=== PATIENT | male | born 1995 | race Caucasian/White ===

== ENCOUNTER 2023-11-13 16:10 | Day surgery (SDC) | payer BC, SELFPAY ==
[2023-11-13] VITALS (20 sets, daily range): BP systolic 115–151; BP diastolic 60–92; PULSE 65–112; RESP 12–18; TEMP 36.6–37.2; O2SAT 95–99; BMI 23.7
[2023-11-13 17:11] LABS: Lactate* 1.6 mmol/L (0.5-1.9)
--- NOTE | 2023-11-13 17:12 | ED_ITS ---
HPI - General Adult General Date Seen: 11/13/23 Chief complaint: Abdominal Pain Stated complaint: Ref by UC for poss appy imaging Time Seen by Provider: 11/13/23 17:12 History of Present Illness HPI narrative: This is a generally healthy 27-year-old male referred to the ER today from the Urgent Care for evaluation of right lower quadrant abdominal pain associated with elevated white blood cell count. He has had abdominal pain that began yesterday evening around 10:00 p.m.. No clear trigger. No new diet or new foods. He has been nauseous and vomiting and has had 3 episodes of emesis today. Poor appetite. Bowel movements normal. Urination normal. Was noted to have a low-grade fever at urgent care. In urgent care he had a workup that showed a WBC of 17.9. Hemoglobin 16, platelet count 222 Point of care sodium 138, potassium 3.4, chloride 101, bicarb 25, BUN 11, creatinine 0.9, ionized calcium 1.18, glucose 110. He was referred here to the ER for CT scan and concern for appendicitis. Related Data Home Medications Medication Instructions Recorded Confirmed valacyclovir 500 mg tablet 500 mg PO QDAY 11/13/23 11/13/23 Allergies Allergy/AdvReac Type Severity Reaction Status Date / Time No Known Drug Allergies Allergy Verified 11/13/23 18:08 [facility] Social History Smoking Status: Never smoker How often do you have a drink containing alcohol: 2-3 times a week AUDIT-C Alcohol total score: 3 Non-prescribed substance use: denies use service: No Exam Narrative: Exam Narrative: Constitutional: Appears well-developed and well-nourished. Alert. Conversant. Politely declines pain meds for now. Not too much pain as long as he holds still. Non toxic. HENT: Head: Atraumatic. Nose: Nose normal. Mouth/Throat: Oral mucosa is clear and moist. no trismus. Pharynx normal. Tonsils symmetric. No tonsillar enlargement, erythema, or exudate. Eyes: Conjunctivae normal. EOM normal. Pupils equal, round, and reactive to light. No scleral icterus. Neck: Normal range of motion. Neck supple. No tracheal deviation present. Cardiovascular: Normal rate, regular rhythm. No gallop. No friction rub. No murmur heard. Symmetric radial artery pulses Pulmonary/Chest: Effort normal. No stridor. No respiratory distress. No wheezes. No rales. No rhonchi . No tenderness. Abdominal: Soft. Bowel sounds normal. No distension. No mass. Right lower quadrant tenderness. Positive rebound. Some guarding, but not a rigid abdomen. Musculoskeletal: RUE: Normal range of motion. No tenderness. No deformity LUE: Normal range of motion. No tenderness. No deformity RLE: Normal range of motion. No edema. No tenderness. No deformity LLE: Normal range of motion. No edema. No tenderness. No deformity Neurological: Alert and oriented to person, place, and time. Normal strength. CN II-VII intact. No sensory deficit. GCS eye subscore is 4. GCS verbal subscore is 5. GCS motor subscore is 6. Normal coordination Skin: Skin is warm and dry. No rash noted. No pallor. Normal capillary refill. Psychiatric: Normal mood. Normal affect. Const: Vital Signs, click to edit/add: Vital Signs - 24 hr 11/13/23 16:22 11/13/23 19:02 11/13/23 19:03 Temperature 98.4 F Pulse Rate [Pulse Oximeter] 92 Respiratory Rate 16 Blood Pressure [Le ft Upper Arm] 135/89 Pulse Oximetry 97 99 99 Oxygen Delivery Me thod Room Air 11/13/23 19:22 11/13/23 19:24 Temperature 98.9 F Pulse Rate [Pulse Oximeter] 112 H Respiratory Rate 18 Blood Pressure [Le ft Upper Arm] 139/92 H Pulse Oximetry 98 98 Oxygen Delivery Me thod Room Air Course Vital Signs Vital signs: Initial Vital Signs Temperature 98.4 F 11/13/23 16:22 Temperature Source Temporal Artery Scan 11/13/23 16:22 Pulse Rate 92 11/13/23 16:22 Pulse Rhythm Regular 11/13/23 16:22 Pulse Strength 3+ Normal 11/13/23 16:22 Respiratory Rate 16 11/13/23 16:22 Blood Pressure 135/89 11/13/23 16:22 Blood Pressure Mean 104 11/13/23 16:22 Blood Pressure Position Sitting 11/13/23 16:22 Pulse Oximetry 97 11/13/23 16:22 Oxygen Delivery Method Room Air 11/13/23 16:22 Vital Signs Temperature 98.4 F 11/13/23 16:22 Pulse Rate 92 11/13/23 16:22 Respiratory Rate 16 11/13/23 16:22 Blood Pressure 135/89 11/13/23 16:22 Pulse Oximetry 97 11/13/23 16:22 Oxygen Delivery Method Room Air 11/13/23 16:22 Temperature 98.9 F 11/13/23 19:24 Pulse Rate 112 H 11/13/23 19:24 Respiratory Rate 18 11/13/23 19:24 Blood Pressure 139/92 H 11/13/23 19:24 Pulse Oximetry 98 11/13/23 19:24 Oxygen Delivery Method Room Air 11/13/23 19:24 Medications Administered Medications: Discontinued Medications Generic Name Dose Route Start Last Admin Trade Name Freq PRN Reason Stop Dose Admin Sodium Chloride 1,000 mls @ 1,000 mls/hr 11/13/23 17:15 11/13/23 19:16 0.9 % Sodium Chloride 1000 Ml IV 11/13/23 18:14 Infused .Q1H [facility] Infusion Medical Decision Making MDM Narrative Medical decision making narrative: The patient presented with right lower quadrant abdominal pain and the Workup, including CT scan, confirms appendicitis. There is no evidence of rupture or abscess at this time. Pain has been controlled with interventions in the Emergency Department. Parenteral antibiotics have been ordered in the Emergency Department. 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 They want us to hold on antibiotics until patient gets to the OR. Discussed findings with the patient and his girlfriend. They verbalized understanding Lab Data Labs: Lab Results 11/13/23 11/13/23 Range/Units 17:05 17:11 Lactate 1.6 (0.5-1.9) mmol/L Urine Color Yellow (Yellow) Urine Appearance Clear (Clear) Urine pH 6.5 (5.0-8.5) Ur Specific [place] 1.015 (1.000-1.030) Urine Protein Negative (Negative) Urine Glucose (UA) Negative (Negative) Urine Ketones 3+ A (Negative) Urine Blood Negative (Negative) Urine Nitrite Negative (Negative) Urine Bilirubin Negative (Negative) Urine Urobilinogen 0.2 (0.2-1.0) Ur Leukocyte Esterase Negative (Negative) Urine RBC 0-2 (0-2) Urine WBC 0-2 (0-5) Ur Squamous Epith Cells None (None-Few) Urine Bacteria None (None) Imaging Data CT scan - abdomen: Attestation: I have reviewed the pertinent imaging results. Radiologist's impression: IMPRESSION: 1. Acute uncomplicated appendicitis. No evidence of perforation or abscess. 2. Diffuse hepatic steatosis. Discharge Plan Discharge Clinical Impression: Acute appendicitis, Fatty liver Patient Disposition: XFER to OR Follow Up/Referrals: Provider,Not a Local [Primary Care Provider] -
--- NOTE | 2023-11-13 17:14 | CT_ITS ---
Patient: ROLANDO RICKETTS Facility:?[facility] Patient ID:?[id number] Site Patient ID:?[id number]. Site :?[id number] Study:?CT-Abdomen/Pelvis W/ ISOVUE 370-11/13/2023 6:15:33 PM Ordering Physician:ANITA Final Report: INDICATION: Right lower quadrant pain, leukocytosis. TECHNIQUE: CT of the abdomen and pelvis acquired with 83 cc Isovue 370 IV contrast. Coronal and sagittal reconstructions. COMPARISON: Same day abdominal radiographs. FINDINGS: Diffuse hepatic steatosis. The gallbladder, spleen, pancreas, and adrenal glands are negative. No biliary dilation. Hepatic and portal veins are patent. Symmetric enhancement of the kidneys. Subcentimeter hypodensity in the lower pole of the left kidney is too small to characterize but likely a cyst. No hydronephrosis or ureteral dilation. No obstructing urinary calculi identified. No bladder wall thickening. No significant prostate enlargement. No small bowel dilation. Mild amount of stool throughout the colon. The appendix is dilated, fluid-filled, and thick walled measuring up to 10 mm in diameter with surrounding inflammatory fat stranding (series 5 image 44). Findings are compatible with acute appendicitis. Trace free fluid in the pelvis. No intraperitoneal free air or evidence of abscess. No lymphadenopathy. 2 mm noncalcified pulmonary nodule in the lateral right lower lobe (series 3, image 9). 2 mm noncalcified pulmonary nodule in the lingula (image 7). These are likely benign given patient age. The lung bases are otherwise clear. The bones are unremarkable. IMPRESSION: 1. Acute uncomplicated appendicitis. No evidence of perforation or abscess. 2. Diffuse hepatic steatosis. Please note that all CT scans at this facility use dose modulation, iterative reconstruction, and/or weight-based dosing when appropriate to reduce radiation dose to as low as reasonably achievable. Dictated by Leonora Omer MD @ 11/13/2023 6:47:08 PM Signed by:?Leonora Omer MD @11/13/2023 6:47:08 PM (Electronic Signature)
[2023-11-13 17:18] LABS: Appearance Urine Clear (Clear); Bilirubin Urine Negative (Negative); Blood Urine Negative (Negative); Color Urine Yellow (Yellow); Glucose Urine Negative (Negative); Ketones Urine 3+ (Negative); Leukocyte Esterase Urine Negative (Negative); Nitrite Urine Negative (Negative); Protein Urine Negative (Negative); Specific Gravity Urine 1.015 (1.000-1.030); Urobilinogen Urine 0.2 (0.2-1.0); pH Urine 6.5 (5.0-8.5)
[2023-11-13 17:39] LABS: RBC Urine 0-2 (0-2); WBC Urine 0-2 (0-5)
[2023-11-13] MEDS: 0.9 % SODIUM CHLORIDE 1000 ml 1,000 ML IV (18:21)
--- NOTE | 2023-11-13 19:52 | PM.GSHP ---
History of Present Illness History of Present Illness Date Seen: 11/13/23 Chief complaint: Ref by for poss appy imaging Narrative: Kayode Vega is a 27 year old male presents for abdominal pain. He states that the pain started in the middle of his abdomen and then began to radiate to the right lower quadrant. It started around 10:00 p.m. last night. He has had pain like this before, but he in the past it would result after 6-8 hours. This pain is different in the sense that it has persisted. He denies any fevers at home. He last ate this morning. He has had a decrease in appetite and some associated nausea. He is otherwise healthy. He has never had surgery before. Review of Systems Status of ROS: Reports: 10 or more systems reviewed and unremarkable except as noted in History and below PFSH PFS Social History Smoking Status: Never smoker How often do you have a drink containing alcohol: 2-3 times a week AUDIT-C Alcohol total score: 3 Non-prescribed substance use: denies use service: No Meds Home Medications and Allergies Home Medications Medication Instructions Recorded Confirmed Type valacyclovir 500 mg tablet 500 mg PO QDAY 11/13/23 11/13/23 History Allergies Allergy/AdvReac Type Severity Reaction Status Date / Time No Known Drug Allergies Allergy Verified 11/13/23 18:08 Exam Narrative: Exam Narrative: General: Alert and oriented, no acute distress Respiratory: Equal breath rise, maintained on room air CV: Well perfused Abdomen: Soft, tender to palpation right lower quadrant with some voluntary guarding. Const: Vital Signs, click to edit/add: Vital Signs - 24 hr 11/13/23 16:22 11/13/23 19:02 11/13/23 19:03 Temperature 98.4 F Pulse Rate [Pulse Oximeter] 92 Respiratory Rate 16 Blood Pressure [Le ft Upper Arm] 135/89 Pulse Oximetry 97 99 99 Oxygen Delivery Me thod Room Air 11/13/23 19:22 11/13/23 19:24 Temperature 98.9 F Pulse Rate [Pulse Oximeter] 112 H Respiratory Rate 18 Blood Pressure [Le ft Upper Arm] 139/92 H Pulse Oximetry 98 98 Oxygen Delivery Me thod Room Air Results Results Labs: WBC (17.9). Abdomen CT scan report/results: report reviewed and image reviewed Progress Note:A&P Assessment and plan (1) Acute appendicitis: Status: Acute Assessment and Plan: The patient presented with a history, exam and imaging findings consistent with acute appendicitis. I discussed the treatment options with the patient including non-surgical and surgical options. I recommended laparoscopic appendectomy. The risks of surgery were reviewed with the patient including the risks of bleeding, post-operative wound or intra-abdominal infection, injury to abdominal structures and possible conversion to an open operation. We also discussed anesthetic complications including ND, stroke, respiratory failure and blood clots. The patient voiced an understanding of our conversation, had the opportunity to ask questions, agreed to accept the risks of surgery and asked that we proceed with surgery.
[2023-11-13] MEDS: LACTATED RINGERS 1000 ML 1,000 ML 125 ML IV (20:12)
[2023-11-13] MEDS: PIPERACILLIN/TAZOBACTAM 3.375 GM INJ IVPB (20:12)
[2023-11-13] MEDS: BUPIVACAINE 0.25% 30 ML INJECTION (20:50)
--- NOTE | 2023-11-13 21:09 | PM.GSPRC ---
Operative Note Date of procedure: 11/13/23 Pre-op diagnosis: Acute appendicitis Post-op diagnosis: Same, non perforated Type of Procedure: Laparoscopic appendectomy Indications: Patient is a 27-year-old male who presented to the emergency department with abdominal pain. Clinical workup and imaging was consistent with acute appendicitis. Risks and benefits of operative intervention were discussed at length with the patient. Risks included but was not limited to: Bleeding, infection, risk of damage to surrounding structures, possible need for additional procedures, possible need to convert to an open operation and postoperative complications such as pneumonia, pulmonary emboli or IL. All questions and concerns were addressed with the patient agreeing to proceed. Procedure Description: After discussing the risks and benefits of the procedure, the patient signed informed consent.? The operative site was marked and the patient was brought to the operating room and placed on the operating table in supine position.? Care was taken to pad the patient's pressure points.?? The patient was then intubated by anesthesia.?? The operative site was then prepped and draped in the usual sterile fashion.? A time-out was then performed. Entrance to the abdomen was obtained via a 5 mm optical trocar in the left upper quadrant. The abdomen was insufflated and briefly surveyed for any signs of injury. There were none. A 12 mm port was placed at the umbilicus as well as a 5 mm port in the left lower quadrant under direct vision. The patient was then placed in Trendelenburg position with the right side up. The small bowel was gently moved out of the way and the appendix was in view. The omentum was covering a dilated appendix, which was positioned over top the cecum. The omentum was able to be gently swept away so the appendix could be in view. There was fibrinous exudate surround the appendix, which was dilated but not obviously necrotic or perforated. The appendix was grasped and pulled into view. A mesenteric window was created between the base of the appendix and the mesoappendix. A 45 mm Endo-ARMANDO purple load stapler was then used to transect the appendix at its base. An additional 30 mm endo-ARMANDO purple load staple was needed to complete the transection. The staple line was inspected, healthy in appearance with no evidence of bleeding. A 45 mm vascular load stapler was then used to take the mesoappendix. A small area of pinpoint bleeding was identified on the mesoappendix, which was controlled with point cauterization. The appendix was then removed from the abdomen using an Endo-Catch bag. The specimen was sent to pathology. The fluid in the right lower quadrant was suctioned. There was a moderate amount of murky fluid in the pelvis, which was suctioned. All ports removed under direct visualization. The 12 mm port site fascia was closed with 0 Vicryl. The skin was then closed with absorbable subcuticular suture. Sterile dressings were then applied. Instrument sponge and needle counts were correct at the end of the case. The patient was then woken and transported to the PACU in stable condition. Findings: Acute appendicitis, nonruptured. Anesthesia: GETA Surgeon: Mary Last MD Estimated blood loss (mL): 5 Specimen: Appendix Condition: stable Disposition: PACU
--- NOTE | 2023-11-13 21:17 | W.ANESCHARGE ---
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
--- NOTE | 2023-11-14 01:20 | PC.NURSE ---
Patient admitted to floor at 2153 status post op laparoscopic appendectomy. Patient alert and oriented upon admission, states he feels drowsy. Denies any pain. Lap sites to abdomen intact, scant amount of bloody drainage noted to all 3 lap sites. Significant other bedside. Patient able to tolerate ice chips and was able to advance to foods within 1.5 hours without nausea, vomiting or pain. Pain to abdomen rated at 0.5-1/10, denied need for any pain management. Post op teaching completed. SBA to bathroom, patient gait steady and able to ambulate without assistance. Discharge instructions reviewed with patient, education on post op completed. Patient discharged from facility at 2351, ambulated while pushing a wheelchair per patient request. Butcher Head accompanied patient and significant other to ER waiting room and shown nfon machine and then accompanied to doors. Patient ambulating independently well, denied any pain, nausea, vomiting or dizziness upon discharge.
== END 2023-11-13 23:50 | disposition home or self-care (01) ==
LOC: ED 19:31 → OR 20:06 → MEDSURG 23:33
PROVIDERS: Emergency Provider Emergency Medicine; Visit Provider Surgery
PROC: 0DTJ4ZZ Resection of Appendix, Percutaneous Endoscopic Approach (ICD-10-PCS; CPT 44970; principal; 2023-11-13 19:30)
DX: K35.80 Unspecified acute appendicitis (principal); K76.0 Fatty (change of) liver, not elsewhere classified; R10.31 Right lower quadrant pain
CPT/HCPCS: 44970; 00840; 74177; 81001; 83605; 88304; 99140; 99284; 99285; J0330; J0665; J1100; J1885; J2250; J2405; J2543; J2704; J2710; J3010; J7030; J7120; Q9967